=== PATIENT | male | born 1975 | race Caucasian/White ===

== ENCOUNTER 2019-03-11 08:51 | Day surgery (SDC) | payer MEDICARE, MEDICAID ==
[~2019-03-11] VITALS: Ht 180.3 cm; Wt 933.5 kg
[~2019-03-11 08:51] MED LIST: ASPIRIN EC81 MG; ASPIRIN EC81 MG PO; CLONIDINE0.2 MG PO; HUMULIN R1 M1 SC; HYDRALAZINE50 MG PO; LASIX 40 MG TAB40 MG PO; LIPITOR40 M1 PO; LISINOPRIL40 MG PO; METO25TAB PO; METO50TA52 PO; METOCLOPRAM5 MG PO; METOLAZONE5 MG PO; METOPROL TAR25 MG PO; NO MEDS; NORCO1 TA2 PO; NORVASC5 M1 PO; NOVOLOG MIX 70/1 INJ; NOVOLOG MIX SC; PANTOPRAZOLE SO40 MG PO; SYNTHROID50 MCG PO; TRAZODONE50 MG PO; VITAMIN D50000 UNT PO; WELLBUTRIN SR150 MG PO; WELLBUTRIN75 M1 PO; ZOHYDRO ER10 M1 PO
[2019-03-11 09:54] LABS: ALBUMIN 4.6 g/dL (3.2-5.0); BILIRUBIN, TOTAL 0.7 mg/dL (0.0-1.4); POTASSIUM 4.3 mmol/l (3.5-5.1); TOTAL PROTEIN 7.9 g/dL (6.3-8.2)
[2019-03-11 09:57] LABS: CREATININE 6.8 mg/dL (0.7-1.3)
[2019-03-11 11:58] VITALS: BP 146/70
== END 2019-03-11 12:17 | disposition home or self-care (01) ==
LOC: ENDO 08:51 → ORM 10:15 → ENDO 10:15
PROVIDERS: ATTEND Internal Medicine Gastroenterology
PROC: 0DBM8ZX Excision of Descending Colon, Via Natural or Artificial Opening Endoscopic, Diagnostic (ICD-10-PCS; principal; 2019-03-11)
PROC: 0DBK8ZX Excision of Ascending Colon, Via Natural or Artificial Opening Endoscopic, Diagnostic (ICD-10-PCS; 2019-03-11)
PROC: 0DBL8ZX Excision of Transverse Colon, Via Natural or Artificial Opening Endoscopic, Diagnostic (ICD-10-PCS; 2019-03-11)
PROC: 0DBN8ZX Excision of Sigmoid Colon, Via Natural or Artificial Opening Endoscopic, Diagnostic (ICD-10-PCS; 2019-03-11)
DX: K50.80 Crohn's disease of both small and large intestine without complications (principal); D12.4 Benign neoplasm of descending colon; D12.5 Benign neoplasm of sigmoid colon; K63.5 Polyp of colon; K64.8 Other hemorrhoids; K64.4 Residual hemorrhoidal skin tags; I12.0 Hypertensive chronic kidney disease with stage 5 chronic kidney disease or end stage renal disease; E11.22 Type 2 diabetes mellitus with diabetic chronic kidney disease; N18.6 End stage renal disease; Z99.2 Dependence on renal dialysis; Z79.4 Long term (current) use of insulin

== ENCOUNTER 2019-04-03 | Emergency (ER) | payer MEDICARE, MEDICAID ==
[2019-04-03] MEDS ORDERED: BACTROBAN TOP (16:23)
[2019-04-03] MEDS ORDERED: KEFLEX500 M1 PO (16:23)
== END 2019-04-03 16:40 | disposition home or self-care (01) ==
DX: S92.412A Displaced fracture of proximal phalanx of left great toe, initial encounter for closed fracture (principal); S90.411A Abrasion, right great toe, initial encounter; E11.42 Type 2 diabetes mellitus with diabetic polyneuropathy; W01.198A Fall on same level from slipping, tripping and stumbling with subsequent striking against other object, initial encounter; Y92.000 Kitchen of unspecified non-institutional (private) residence as the place of occurrence of the external cause; Z79.4 Long term (current) use of insulin

== ENCOUNTER 2021-02-13 12:28 | Emergency (ER) | payer MEDICARE, MEDICAID ==
[~2021-02-13] VITALS: Ht 180.3 cm; Wt 75.0 kg
[~2021-02-13 12:28] MED LIST changes: +BACTROBAN TOP; +KEFLEX500 M1 PO
[2021-02-13 13:35] LABS: HEMATOCRIT 27.8 % (39.0-50.0); HEMOGLOBIN 8.7 g/dl (14.0-18.0); IMMATURE GRANULOCYTES 0.5 % (0.0-5.0); MEAN CELL VOLUME 94.9 fL CALC (80.0-100.0); MEAN CORPUSCULAR HGB 29.7 pG CALC (26.0-32.0); MEAN CORPUSCULAR HGB CONC 31.3 g/dL CAL (32.0-36.0); NEUT# 9.22 thou/uL (1.82-7.42); RED BLOOD COUNT 2.93 mill/uL (4.70-6.10); RED CELL DISTRI WIDTH 14.1 % (11.5-15.5)
[2021-02-13 13:59] LABS: ALBUMIN 3.6 g/dL (3.2-5.0); BILIRUBIN, TOTAL 1.3 mg/dL (0.0-1.4); TOTAL PROTEIN 6.8 g/dL (6.3-8.2)
[2021-02-13 14:00] LABS: CREATININE 5.8 mg/dL (0.7-1.3); POTASSIUM 5.7 mmol/l (3.5-5.1)
[2021-02-13 18:00] VITALS: BP 155/80
== END 2021-02-13 20:03 ==
LOC: ED 12:28
PROVIDERS: Family Medicine
DX: K81.0 Acute cholecystitis (principal); E11.22 Type 2 diabetes mellitus with diabetic chronic kidney disease; I12.0 Hypertensive chronic kidney disease with stage 5 chronic kidney disease or end stage renal disease; N18.6 End stage renal disease; Z99.2 Dependence on renal dialysis; E11.42 Type 2 diabetes mellitus with diabetic polyneuropathy; F17.200 Nicotine dependence, unspecified, uncomplicated; Z79.4 Long term (current) use of insulin
CPT/HCPCS: Q9967

== ENCOUNTER 2021-02-22 19:22 | Emergency (ER) | payer MEDICARE, MEDICAID | END 2021-02-22 20:12 | disposition left against medical advice (07) | LOC: ED 19:22 → LWOBS 20:12 → ED 20:12 | DX: Z91.19 Patient's noncompliance with other medical treatment and regimen (principal) ==

== ENCOUNTER 2021-04-01 07:04 | Inpatient (IN) | payer MEDICARE, MEDICAID ==
[~2021-04-01] VITALS: Ht 180.3 cm; Wt 80.1 kg
[2021-04-01] VITALS (7 sets, daily range): BP systolic 117–133; BP diastolic 60–79
[~2021-04-01 07:04] MED LIST changes: +COZAAR25 MG PO
[2021-04-01 07:40] LABS: MEAN CELL VOLUME 98.3 fL CALC (80.0-100.0); MEAN CORPUSCULAR HGB 30.5 pG CALC (26.0-32.0); NEUT# 3.73 thou/uL (1.82-7.42); RED BLOOD COUNT 2.95 mill/uL (4.70-6.10); RED CELL DISTRI WIDTH 17.3 % (11.5-15.5)
[2021-04-01 08:06] LABS: ALBUMIN 3.7 g/dL (3.2-5.0); BILIRUBIN, TOTAL 1.2 mg/dL (0.0-1.4); CREATININE 4.7 mg/dL (0.7-1.3); TOTAL PROTEIN 6.9 g/dL (6.3-8.2)
[2021-04-01 08:10] LABS: POTASSIUM 5.7 mmol/l (3.5-5.1)
[2021-04-01 08:19] LABS: INTERNATIONAL NORMALIZED RATIO 1.1 RATIO (0.7-1.3); PROTHROMBIN TIME 11.6 SECONDS (9.0-12.5)
--- NOTE | 2021-04-01 16:24 | NUR ---
PT [facility] RO[facility] VIA STRETCHER ACCOMPAINED BY OR. PT IS A/OX3. ASSESSMENT AND VITALS COMPLETED. BP 130/69, HR 89, O2 82% ON 3L NC. RESPIRATIONS ARE EVEN AND UNLABORED. LUNG SOUNDS ARE CLEAR. HEART RHYTHM NORMAL. BOWEL SOUNDS ARE ACTIVE, LBM 03/31/21. GAGAN PICC IN PLACE, HUB PLACED AND TUBING RECONNECTED. IVF INFUSING PER ORDER, SITE REMAINS HEALTHY AND PATENT. DIABETIC FOOT ULCERS NOTED TO ANMOL FEET. SCABBED OVER WOUNDS NOTED TO LEFT FOOT. AND OPEN WOUND AND BILTER NOTED TO RIGHT FOOT. PHOTOS OBTAINED. DRESSING TO RIGHT FOOT REMOVED DUE TO BEING SOILED, NEW DRY DRESSING APPLIED. PT STATES HE GOES TO [facility] FOR CHAMBER TREATMENT 5 DAY A WEEK. PT IS ALSO DIALYSIS, RECIEVES THURSDAY,THURSDAY AND THURSDAY. ACCUCHECK COMPLETED, RESULTING IN 90. PT COMPLAINS OF 10/10 PAIN. PT TO BE MEDICATED PER EMAR. SCDS APPLIED. PT EDUCATED ON I.S. PT DENIES OF ANY ADDITIONAL NEEDS.PT ORIENTED TO ROOM. ALLERGY AND FALL RISK BAND APPLIED.ALL SAFTEY PRECAUTIONS ARE IN PLACE WITH CALL LIGHT IN REACH. WILL CONTINUE TO MONITOR.
--- NOTE | 2021-04-01 17:00 | NUR ---
SPOKE WITH DR AHMADI. INFORMED HOME OF DIALYSIS SCHEDULED. GRAIN DRIER INFORMED OF PT BEING ON WAIT LIST FOR TRANSFER TO [facility]. PT INFORMED. VERBALIZED UNDERSTANDING.
--- NOTE | 2021-04-01 19:14 | NUR ---
CALLED AND SPOKE TO [facility] FOR TRANSFER INFORMATION ROOM NUMBER 227.
--- NOTE | 2021-04-01 19:35 | NUR ---
CALLED BETTY SPOKE TO RONNY WAS GIVEN A 1 AND HALF HOUR WAIT TIME. STATED THE RIG WILL BE HERE AT 2100.
--- NOTE | 2021-04-01 19:45 | NUR ---
PATIENT ALERT AND ORIENTED. ABLE TO MAKE NEEDS KNOWN. OBSERVED SITTING ON SIDE OF BED. ASSESSMENT COMPLETE. MIDLINE DRESSING TO ABDOMEN CRY AND INTACT. WILTON DRAIN TO LEFT SIDE EMPTIED WITH 50CC RED OUTPUT. C/O PAIN. WILL MEDICATE PATIENT PER ORDERS IN EMAR. RIGHT FOOT APPEARS WRAPPED WITH A DRESSING AND AND KENJI BANDAGE. CALL LIGHT AND BELONGINGS REMAIN IN REACH.
--- NOTE | 2021-04-01 22:08 | NUR ---
[facility] HERE TO TRANSPORT PATIENT TO [facility]. PATIENT CONSENT WAS SIGNED PRIOR.
--- NOTE | 2021-04-01 22:30 | NUR ---
PATIENT LEFT WITH [facility], STABLE CONDITION. APPROPRIATE PAPERWORK GIVEN.
== END 2021-04-01 22:50 | DRG 414 ==
LOC: ORM 07:04 → MS2 13:30
PROVIDERS: ADMIT Surgery; ATTEND Surgery
PROC: 0FT40ZZ Resection of Gallbladder, Open Approach (ICD-10-PCS; principal; 2021-04-01)
PROC: 0FJ44ZZ Inspection of Gallbladder, Percutaneous Endoscopic Approach (ICD-10-PCS; 2021-04-01)
DX: K80.01 Calculus of gallbladder with acute cholecystitis with obstruction (principal); N18.6 End stage renal disease; I12.0 Hypertensive chronic kidney disease with stage 5 chronic kidney disease or end stage renal disease; N25.81 Secondary hyperparathyroidism of renal origin; K82.A1 Gangrene of gallbladder in cholecystitis; E11.22 Type 2 diabetes mellitus with diabetic chronic kidney disease; D63.1 Anemia in chronic kidney disease; E87.5 Hyperkalemia; E11.51 Type 2 diabetes mellitus with diabetic peripheral angiopathy without gangrene; F17.210 Nicotine dependence, cigarettes, uncomplicated; Z99.2 Dependence on renal dialysis; Z79.4 Long term (current) use of insulin
CPT/HCPCS: J0131; J1610; Q9967